=== PATIENT | female | born 1950 | race Caucasian/White ===

== ENCOUNTER 2019-12-03 | Emergency (ER) | payer MEDICARE ==
[2019-12-03] MEDS ORDERED: CITALOPRAM20 M1 PO (09:33)
== END 2019-12-03 11:22 | disposition home or self-care (01) ==
PROC: 2W3DX1Z Immobilization of Left Lower Arm using Splint (ICD-10-PCS; principal; 2019-12-03)
DX: M79.642 Pain in left hand (principal); R07.81 Pleurodynia; I10 Essential (primary) hypertension; W19.XXXA Unspecified fall, initial encounter; Y92.009 Unspecified place in unspecified non-institutional (private) residence as the place of occurrence of the external cause